=== PATIENT | female | born 1950 | race Two or more races ===

== ENCOUNTER 2025-07-08 11:28 | Emergency (ER) | payer OTHER ==
[~2025-07-08] VITALS: Ht 154.9 cm; Wt 61.2 kg
[2025-07-08] MEDS ORDERED: FAMOTIDINE/PF 20 MG/2 ML VIAL IV ONE (13:15)
[2025-07-08] MEDS ORDERED: 0.9 % SODIUM CHLORIDE 1,000 ML IV SCH (13:15)
[2025-07-08] MEDS ORDERED: FAMOTIDINE/PF 20 MG/2 ML VIAL ONE (13:26)
[2025-07-08 14:18] LABS: BASO % 0.4 % (0.1-1.2); EOS # 0.22 (0.04-0.54); EOS % 2.4 % (0.7-7.0); LYMPH # 4.04 (1.18-3.74); LYMPH % 43.3 % (19.3-53.1); MEAN PLATELET VOLUME 9.80 fl (9.4-12.4); MONO # 0.64 (0.24-0.82); MONO % 6.9 % (4.7-12.5); NEUT # 4.36 (1.56-6.13); NEUT % 46.8 % (34.0-71.1); RED CELL DISTRIBUTION WIDTH 13.1 % (11.6-14.4)
[2025-07-08 14:31] LABS: ERYTHROCYTE SEDIMENTATION RATE 24 mm/hr (0-30)
[2025-07-08 14:48] LABS: COVID-19 AG NEGATIVE (NEGATIVE)
[2025-07-08 15:40] LABS: ALT/SGPT 34.0 U/L (12-78); AST/SGOT 20.0 U/L (15-37); BILIRUBIN TOTAL 0.65 mg/dL (0.3-1.2); BUN CREA RATIO 26.0 (7.0-25.0); CKMB 1.3 NG/ML (0.5-3.6); CREATININE SERUM 0.88 mg/dL (0.55-1.02); GFR 62.64; GLOBULINA 4.1 G/DL (2.4-3.5); GLUCOSE FASTING 83.0 mg/dL (65-100); OSMOLALITY SERUM 279.0 MOSM/KG (275-295)
[2025-07-08 17:29] LABS: URINE APPEARANCE Clear; URINE BILIRRUBIN Negative (NEGATIVE); URINE BLOOD Small; URINE COLOR Yellow; URINE GLUCOSE Negative (NEGATIVE); URINE KETONE Negative (NEGATIVE); URINE LEUKOCYTE Moderate; URINE NITRATE Negative; URINE PROTEIN Negative (NEGATIVE); URINE UROBILINOGEN 0.2 E.U./dl
[2025-07-08 17:34] LABS: URINE BACTERIA 238.7 uL (0.0-1933); URINE EPITHELIAL CELLS 4.7 uL (0.0-38.8); URINE RBC 9.0 uL (0.0-20.8); URINE WBC 187.2 uL (0.0-23.2)
[2025-07-08 17:41] LABS: URINE CAST 0.14 uL (0.0-1.40)
[2025-07-08] MEDS ORDERED: HYDROXYZINE HCL25 MG PO (19:24)
[2025-07-08] MEDS ORDERED: BACTRIM DS TAB1 EACH PO (19:24)
== END 2025-07-08 20:25 | disposition home or self-care (01) ==
LOC: ER 11:28
PROVIDERS: Student in an Organized Health Care Education/Training Program
DX: N39.0 Urinary tract infection, site not specified (principal); B34.9 Viral infection, unspecified; I95.1 Orthostatic hypotension; F41.8 Other specified anxiety disorders; Z20.822 Contact with and (suspected) exposure to COVID-19